=== PATIENT | female | born 1945 | race Caucasian/White ===

== ENCOUNTER 2024-01-24 18:00 | Emergency (ER) | payer MEDICARE, BC ==
[~2024-01-24] VITALS: Ht 167.6 cm; Wt 88.3 kg
[2024-01-24] MEDS ORDERED: CEPHALEXIN500 MG PO (18:36)
[2024-01-24] MEDS ORDERED: CEPHALEXIN500 M1 PO (19:36)
[2024-01-24] MEDS ORDERED: CEPHALEXIN MONOHYDRATE 500 MG HOME.PACK PO ONE (19:45)
--- OUTSIDE RECORDS SUMMARY | 2024-01-24 20:03 | XMS ---
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 E.Abram VISIT COUNT (12 MO.) [address] TOTAL 3 NOTE: Visits indicate total known visits. ED/C VISIT TRACKING (12 MO.) 01/24/2024 18:[address] [facility] [place] TYPE: Emergency COMPLAINT: - DOG BITE 01/19/2024 23:45 [facility] [place] TYPE: Emergency COMPLAINT: - R- dog bite, L hand DIAGNOSES: - Bitten by dog, initial encounter - Open bite of left hand, initial encounter - Animal Bite - R- dog bite, L hand 09/05/2023 00:36 [facility] [place] TYPE: Emergency COMPLAINT: - R- covid DIAGNOSES: - COVID-19 - COVID - R- covid INPATIENT VISIT TRACKING (12 MO.) No inpatient visits to display in this time frame [email or web address]
[2024-01-24 20:26] VITALS: BP 133/91
== END 2024-01-24 20:26 | disposition home or self-care (01) ==
LOC: ED 18:00
DX: Z76.0 Encounter for issue of repeat prescription (principal); L03.113 Cellulitis of right upper limb
CPT/HCPCS: 99281; A9270